=== PATIENT | male | born 1990 | race Caucasian/White ===

== ENCOUNTER 2018-08-19 14:00 | Emergency (ER) | payer OTHER ==
[2018-08-19 14:16] VITALS: BP 141/84
[2018-08-19] MEDS ORDERED: IBUPROFEN 800 MG TABLET PO STA (14:31)
[2018-08-19] MEDS ORDERED: TETANUS/DIPHTHERIA/PERTUSSIS 0.5 ML SYRINGE IM ONE (14:31)
--- NOTE | 2018-08-19 14:34 | ED Physician Documentation ---
PD HPI HEAD INJURY - Stated complaint Stated Complaint: [facility] VS HEAD - Chief complaint Chief Complaint: Trauma Hd/Nk - History obtained from History obtained from: Patient - History of Present Illness Mechanism of head injury: Blow Where head injury occurred: Work Timing - onset: Today (Just prior to arrival.) Location of injury: Front Associated symptoms: No: LOC Similar symptoms before: Has not had sx before - Additional information Additional information: The patient is a 28-year-old male who was picking up branches under a bucket truck [place] the highway, when a branch fell about 20 feet onto his helmet, knocking him to the pavement. He denies loss of consciousness. He has been ambulatory since the incident occurred. The strap inside his helmet impacted his forehead, causing swelling. He denies nausea or vomiting. He denies visual disturbance. Tetanus status is uncertain. Review of Systems Constitutional: denies: Fever Eyes: denies: Decreased vision Ears: denies: Tinnitus/ringing Nose: denies: Congestion Throat: denies: Sore throat Cardiac: denies: Chest pain / pressure Respiratory: denies: Dyspnea, Cough GI: denies: Abdominal Pain, Nausea, Vomiting : denies: Incontinent Skin: reports: Abrasion (s) (forehead) Musculoskeletal: reports: Neck pain (mild). denies: Back pain, Extremity pain Neurologic: reports: Head injury. denies: Focal weakness, Numbness, Headache, LOC PD PAST MEDICAL HISTORY - Past Medical History Past Medical History: No Endocrine/Autoimmune: None - Past Surgical History Past Surgical History: Yes - Present Medications Home Medications: Ambulatory Orders Medication Instructions Recorded Confirmed Dextroamphetamine/Amphetamine 08/19/18 [Adderall 10 mg Tablet] Hydrocodone/Acetaminophen 1 - 2 each PO Q6H PRN #14 tablet 08/19/18 [Hydrocodon-Acetaminophen 5-325] - Allergies Allergies/Adverse Reactions: Allergies Allergy/AdvReac Type Severity Reaction Status Date / Time No Known Drug Allergies Allergy Verified 08/19/18 14:16 - Social History Does the pt smoke?: No Smoking Status: Never smoker Does the pt drink ETOH?: No Does the pt have substance abuse?: No - Immunizations Immunizations are current?: Yes - POLST Patient has POLST: No PD ED PE NORMAL - Vitals Vital signs reviewed: Yes (Borderline hypertension initially.) - General General: Alert and oriented X 3, Well developed/nourished - HEENT HEENT: PERRL, EOMI, Ears normal, Pharynx benign, Other (There is a mid forehead hematoma, with superficial abrasion. No bony step-off palpated.) - Neck Neck: No bony TTP, No adenopathy, Other (He has full cervical range of motion, without tenderness to palpation along the spinous processes. There is mild tend erness to palpation along the left paracervical musculature.) - Cardiac Cardiac: RRR, No murmur - Respiratory Respiratory: No respiratory distress, Clear bilaterally - Abdomen Abdomen: Soft, Non tender - Back Back: No spinal TTP - Derm Derm: No rash - Extremities Extremities: No tenderness to palpate, Normal ROM s pain - Neuro Neuro: Alert and oriented X 3, No motor deficit, No sensory deficit Results - Vitals Vitals: Oxygen O2 Source Room air PD MEDICAL DECISION MAKING - ED course Complexity details: considered differential, d/w patient, other (L&I form was completed.) ED course: The patient's presentation is significant for traumatic head injury, with forehead hematoma. His physical examination does not suggest cervical spine injury or intracranial injury. Imaging studies were considered, but the patient and I agreed that they would be of limited clinical benefit given his pre sentation. Treatment in the emergency department included administration of tetanus booster and ibuprofen 800 mg orally. I discussed with him the expected course of injury, symptomatic treatment and outpatient follow-up, as well as potentially worrisome signs or symptoms that should prompt reevaluation in the emergency department. He is being discharged with prescription for Vicodin, 14 tablets. An L&I form was completed. Departure - Departure Disposition: 01 Home, Self Care Clinical Impression: Closed head injury Qualifiers: Encounter type: initial encounter Qualified Code(s): S09.90XA - Unspecified injury of head, initial encounter Contusion of forehead Qualifiers: Encounter type: initial encounter Qualified Code(s): S00.83XA - Contusion of other part of head, initial encounter Condition: Stable Instructions: ED Head Injury Closed Follow-Up: Mikaela Hernandez MD [Primary Care Provider] - Prescriptions: Hydrocodone/Acetaminophen [Hydrocodon-Acetaminophen 5-325] 1 - 2 each PO Q6H PRN #14 tablet PRN Reason: pain Comments: Apply ice pack to the sore areas intermittently for the next 3 days. You can use ibuprofen, up to 800 mg 3 times daily for its anti-inflammatory effect. You can use Vicodin as prescribed if needed for pain. Let pain be your guide to activity level. Follow-up with your primary physician within 2 weeks if not completely resolved. Return to the emergency department if you develop increasing headache, pers istent vomiting, numbness or weakness, or otherwise worsening symptoms. Discharge Date/Time: 08/19/18 14:45
[2018-08-19] MEDS ORDERED: BACITRACIN OINT TOP ONE (14:41)
== END 2018-08-19 14:45 | disposition home or self-care (01) ==
LOC: ED 14:00
DX: S09.90XA Unspecified injury of head, initial encounter (principal); S00.83XA Contusion of other part of head, initial encounter; S00.81XA Abrasion of other part of head, initial encounter; W20.8XXA Other cause of strike by thrown, projected or falling object, initial encounter; Y93.H9 Activity, other involving exterior property and land maintenance, building and construction; Y92.488 Other paved roadways as the place of occurrence of the external cause; Y99.0 Civilian activity done for income or pay
CPT/HCPCS: 1040M; 90471; 90715; 99283; A9270

== ENCOUNTER 2018-10-13 10:56 | Outpatient (CLI) | payer OTHER ==
--- NOTE | 2018-10-13 11:42 | XRAY Report ---
Reason: SPRAIN OF LIAMENTS OF THORACIC SPINE Procedure Date: 10/13/2018 Accession Number: [id number] / [id number] Procedure: WCP - Thoracic Spine 2 View CPT Code: FULL RESULT: EXAM: THORACIC SPINE RADIOGRAPHY EXAM DATE: 10/13/2018 11:04 AM. CLINICAL HISTORY: Upper back pain x 2 months. COMPARISON: None. TECHNIQUE: 2 views. FINDINGS: Alignment: Normal. No spondylolisthesis or scoliosis. Bones: No fractures or bone lesions. Disks: Normal. Disk heights are maintained. Soft Tissues: Normal. The visualized lungs and cardiomediastinal silhouette are normal. IMPRESSION: Normal thoracic spine radiography. [facility]
== END 2018-10-13 10:57 | disposition home or self-care (01) ==
LOC: DI.WCP 10:56
PROVIDERS: ATTEND Physician Assistant
DX: S23.3XXA Sprain of ligaments of thoracic spine, initial encounter (principal)
CPT/HCPCS: 72070

== ENCOUNTER 2020-09-14 12:59 | Outpatient (CLI) | payer OTHER ==
--- NOTE | 2020-09-14 14:02 | XRAY Report ---
PROCEDURE: Cervical Spine 2 View INDICATIONS: NECK SPRAIN TECHNIQUE: 3 view(s) of the cervical spine were acquired. COMPARISON: Cervical spine plain films 08/25/2018. FINDINGS: Bones: No fractures or dislocations to the T1 level. The lateral masses of C1 appear intact on the odontoid view. No suspicious bony lesions. Soft tissues: No prevertebral soft tissue swelling. IMPRESSION: No trauma found, no malalignment identified. Reviewed by: Sean Hernandez MD on 09/14/2020 2:01 PM [facility] Approved by: Sean Hernandez MD on 09/14/2020 2:01 PM PST Station ID: [id number]
== END 2020-09-14 13:00 | disposition home or self-care (01) ==
LOC: DI 12:59
PROVIDERS: ATTEND Physician Assistant
DX: S13.9XXA Sprain of joints and ligaments of unspecified parts of neck, initial encounter (principal)

== ENCOUNTER 2021-11-27 12:45 | Outpatient (CLI) | payer OTHER ==
[2021-11-27] MEDS ORDERED: GADOBUTROL 10 MMOL/10 ML VIAL ONE (13:03)
--- NOTE | 2021-11-27 13:55 | MRI Report ---
PROCEDURE: Brain W/WO INDICATIONS: POSTCONCUSSION SYNDROME, HEADACHES CONTRAST: IV CONTRAST: Gadavist ml: 10 TECHNIQUE: Noncontrast axial T1 spin echo, axial T2 fast spin echo, sagittal and axial FLAIR, coronal T2 fast sp in echo, axial gradient echo, axial diffusion and ADC through the brain. After the administration of contrast, axial and coronal T1 spin echo with fat saturation through the brain. COMPARISON: None. FINDINGS: Image quality: Excellent. CSF spaces: Basal cisterns are patent. No extra-axial fluid collections. Ventricles are normal in size and shape. Brain: No midline shift. No intracranial bleeds or masses. No abnormal intracranial enhancement. There is cerebral volume loss for age. There is periventricular white matter chronic small vessel is chemic change. The brainstem appears normal. Diffusion-weighted images demonstrate no acute ischemi c insults. No chronic ischemic insults. Normal intravascular flow voids are present. Skull and face: Calvarial marrow is normal in signal. Orbits appear normal. Sinuses: Sinuses and mastoids appear clear. IMPRESSION: 1. No acute process. 2. No explanation for headache. 3. No recent infarct. Reviewed by: Olvin Rubalcava MD on 11/27/2021 1:53 PM PDT Approved by: Olvin Rubalcava MD on 11/27/2021 1:53 PM PDT Station ID: [id number]
[2021-11-27] MEDS ORDERED: GADOBUTROL 10 MMOL/10 ML VIAL IVP ONE (15:27)
== END 2021-11-27 12:46 | disposition home or self-care (01) ==
LOC: DI 12:45
PROVIDERS: ATTEND Family Medicine
DX: F07.81 Postconcussional syndrome (principal)
CPT/HCPCS: 70553; A9585